=== PATIENT | female | born 1975 | race Caucasian/White ===

== ENCOUNTER 2018-08-24 09:34 | Emergency (ER) | payer MEDICAID ==
[2018-08-24] MEDS: TRIMETHOPRIM/SULFAMETHOX (DS) TAB PO (10:19)
[2018-08-24] MEDS: CEPHALEXIN 500 MG CAP PO (10:20)
[2018-08-24] MEDS: IBUPROFEN 600 MG TAB PO (10:20)
== END 2018-08-24 10:24 | disposition home or self-care (01) ==
LOC: FTE 09:34
DX: K13.0 Diseases of lips (principal)
CPT/HCPCS: 99283; Z7502